=== PATIENT | male | born 1985 | race Caucasian/White ===

== ENCOUNTER → 2018-08-23 | Outpatient (REF) ==
--- NOTE | 2018-08-23 09:55 | EKG ---
FACILITY: [facility] [place] PATIENT NAME: OANH POE : [id number] MR: [id number] V: [id number] EXAM DATE: ORDERING PHYSICIAN: ANNY FORD TECHNOLOGIST: CARMELA Test Reason : HEALTH EXAM Blood Pressure : / mmHG Vent. Rate : 063 BPM Atrial Rate : 063 BPM P-R Int : 180 ms QRS Dur : 090 ms QT Int : 414 ms P-R-T Axes : -08 051 034 degrees QTc Int : 423 ms Normal sinus rhythm Normal ECG No previous ECGs available Confirmed by ELSIE JEFFERSON ([id number]) on 08/23/2018 6:19:07 PM Referred By: LOGAN Confirmed By:ELSIE JEFFERSON
--- NOTE | 2018-08-23 10:02 | RADIOLOGY IMAGING REPORT ---
FACILITY: [facility] PATIENT NAME: Art Yang : 1985 MR: [id number] V: [id number] EXAM DATE: ORDERING PHYSICIAN: ANNY FORD TECHNOLOGIST: Location: [facility] [place] Patient: Art Yang : 1985 Visit/Account:[id number] Date of Sevice: 08/23/2018 Exam type: CHEST SINGLE AP History: Health exam Comparison: August 29, 2012. Findings: The lungs are free of acute effusions, infiltrates or edema. The cardiac silhouette is normal in siz e. The trachea is in midline. There is no evidence of a pneumothorax pneumomediastinum or cavitary lesions. IMPRESSION: 1. No acute cardiopulmonary process is seen. Specifically no chest radiographic evidence of active tuberculosis. Report Dictated By: Beatriz Diaz MD at 08/23/2018 9:58 AM Report E-Signed By: Beatriz Diaz MD at 08/23/2018 9:59 AM WSN:[email or web address]
== END ==
LOC: RAD 09:27
PROVIDERS: ATTEND Family Medicine
DX: Z02.89 Encounter for other administrative examinations (principal)
CPT/HCPCS: 71045; 93005